=== PATIENT | female | born 1950 ===

== ENCOUNTER 2017-01-22 16:11 | Emergency (ER) | payer OTHER ==
[~2017-01-22] VITALS: Ht 160 cm; Wt 59.0 kg
== END 2017-01-22 17:35 | disposition home or self-care (01) ==
LOC: ED 16:11
PROC: 2W3CX1Z Immobilization of Right Lower Arm using Splint (ICD-10-PCS; principal; 2017-01-22)
DX: S52.501A Unspecified fracture of the lower end of right radius, initial encounter for closed fracture (principal); S52.601A Unspecified fracture of lower end of right ulna, initial encounter for closed fracture; W19.XXXA Unspecified fall, initial encounter
CPT/HCPCS: 96372; 99283; J1885